=== PATIENT | male | born 1960 | race Caucasian/White ===

== ENCOUNTER 2016-08-13 02:21 | Inpatient (IN) | payer OTHER ==
[~2016-08-13] VITALS: Ht 182.9 cm; Wt 86.2 kg
--- NOTE | 2016-08-13 02:30 | ED DYSPNEA/ASTHMA COMPLAINT ---
History of Present Illness General Chief Complaint: General Adult Stated Complaint: DIFF BREATHING Source: patient, family Exam Limitations: no limitations Vital Signs & Intake/Output Vital Signs & Intake/Output Vital Signs Date Time Temp Pulse Resp B/P Pulse O2 O2 Flow FiO2 Ox Delivery Rate 08/13 0645 97.5 106 20 115/68 99 Nasal 2.0L Cannula 08/13 0522 107 20 107/68 99 Nasal 2.0L Cannula 08/13 0430 97.3 110 20 115/69 98 Nasal 2.0L Cannula 08/13 0350 131 20 110/78 95 Nasal 2.0L Cannula 08/13 0320 108 20 105/67 98 Nasal 2.0L Cannula 08/13 0310 140 24 168/113 08/13 0237 97 Nasal 3.0L Cannula 08/13 0230 96.7 102 28 168/113 97 Nasal 2.0L Cannula Allergies Coded Allergies: No Known Allergies (08/13/16) Reconcile Medications No Known Home Medications Triage Nurses Notes Reviewed? yes Onset: Gradual Duration: day(s): Timing: recent history Severity: moderate Activities at Onset: none Prior Episodes/Possible Cause: occasional episodes Modifying Factors: Improves With: rest. Worsens With: movement. Associated Symptoms: cough, wheezing HPI: 56 yo gentleman h/o cigarette smoking, h/o ID presents with 1 day history of cough, wheezing, dyspnea at rest, with phlegm. He notes that, "They were doing some spray painting downstairs.... That's when I started wheezing." He notes that during the day into the night, he started to feel worse. Upon arrival, he is dyspneic at rest, with difficulty speaking in complete sentences. 02 sat 91% room air. Past History Medical History Any Pertinent Medical History? see below for history Cardiovascular: CAD, ID Surgical History Surgical History: non-contributory Family History Hx Contributory? No Review of Systems Review of Systems Constitutional: Reports: no symptoms. EENTM: Reports: no symptoms. Respiratory: Reports: no symptoms. Cardiovascular: Reports: no symptoms. GI: Reports: no symptoms. Genitourinary: Reports: no symptoms. Musculoskeletal: Reports: no symptoms. Skin: Reports: no symptoms. Neurological/Psychological: Reports: no symptoms. Hematologic/Endocrine: Reports: no symptoms. Immunologic/Allergic: Reports: no symptoms. All Other Systems: Reviewed and Negative Physical Exam Physical Exam General Appearance: well developed/nourished, moderate distress Head: atraumatic, normal appearance Eyes: Bilateral: normal appearance. Ears, Nose, Throat: normal pharynx, normal ENT inspection Neck: normal inspection, supple, full range of motion Respiratory: chest non-tender, accessory muscle use, wheezing, respiratory distress Cardiovascular: regular rate/rhythm Gastrointestinal: normal bowel sounds, soft, non-tender, no organomegaly Extremities: normal inspection, normal capillary refill, normal range of motion, no edema Neurologic/Psych: no motor/sensory deficits, awake, alert, oriented x 3 Skin: intact, normal color, warm/dry Core Measures ACS in differential dx? No Severe Sepsis Present: No Septic Shock Present: No Progress Differential Diagnosis: asthma, AMI, CHF, COPD, pneumonia Plan of Care: Orders Procedure Date/time Status Regular Diet 08/13 B Active TROPONIN LEVEL 08/13 1000 Active EKG 08/13 1000 Active ECHOCARDIOGRAM 08/13 0800 Active TRC EVALUATION (GEN) 08/13 626 Active Add-on Test (ER Only) 08/13 0627 Active Intake & Output 08/13 0626 Active Patient Data 08/13 0546 Active Saline Lock 08/13 0521 Active Pathway - chart 08/13 0521 Active House Staff 08/13 0521 Active Code Status 08/13 0521 Active Admit to inpatient 08/13 0513 Active LIPID PANEL 08/13 0400 Active GLYCOSYLATED HGB 08/13 0400 Active BLOOD CULTURE 08/13 0240 Active BLOOD CULTURE 08/13 0237 Active TROPONIN LEVEL 08/13 0236 Active PARTIAL THROMBOPLASTIN TIME 08/13 0236 Complete PROTHROMBIN TIME 08/13 0236 Complete COMPREHENSIVE METABOLIC PANEL 08/13 0236 Active CBC WITHOUT DIFFERENTIAL 08/13 0236 Complete B-TYPE NATRIURETIC PEP (BNP) 08/13 0236 Active EKG 08/13 0236 Active VTE Mechanical Prophylaxis 08/13 UNK Active Current Medications Sig/Shy Start time Last Medication Dose Stop Time Status Admin Methylprednisolone 40 MG Q8 08/13 1400 UNVr (Solumedrol) Albuterol Sulfate 3 ML Q4P PRN 08/13 0630 AC (Proventil) Laboratory Tests 08/13/16 0400: Anion Gap 9, Estimated GFR > 60, BUN/Creatinine Ratio 8.8, Glucose 124 H, Hemoglobin A1c Pending, Calcium 9.1, Total Bilirubin 0.6, AST 19, ALT 34, Alkaline Phosphatase 76, Troponin I 0.08, Umt-Z-Jyulaklqdqn Pept 1470 H, Total Protein 6.8, Albumin 4.0, Globulin 2.8, Albumin/Globulin Ratio 1.4, Triglycerides 110, Cholesterol 193, LDL Cholesterol, Calc 135 H, HDL Cholesterol 36 L, Cholesterol/HDL Ratio 5 H, PT 11.9, INR 1.13, APTT 34 08/13/16309: CBC w Diff NO MAN DIFF REQ, RBC 5.26, MCV 91.1, MCH 30.7, RDW 14.3, MPV 9.3, Gran % 85.2 H, Lymphocytes % 8.3 L, Monocytes % 5.5, Eosinophils % 0.8, Basophils % 0.2, Absolute Granulocytes 7.5 H, Absolute Lymphocytes 0.7 L, Absolute Monocytes 0.5, Absolute Eosinophils 0.1, Absolute Basophils 0, PUBS MCHC 33.6 Microbiology 08/13 309 BLOOD: Blood Culture - RECD 08/13 249 BLOOD: Blood Culture - RECD Diagnostic Imaging: Viewed by Me: Radiology Read. Discussed w/RAD: Radiology Read. CXR Impression: interstitial edema... full report below. Initial ED EKG: lbbb afib with rapid ventricular response. Comments: PATIENT: DIMAS CORTEZ PRESENT AGE: 56 PATIENT ACCOUNT NO: [id number] : 60 LOCATION: [facility] ORDERING PHYSICIAN: LEE VIERA MD SERVICE DATE: 08/13/16 EXAM TYPE: RAD - XRY-PORTABLE CHEST XRAY EXAMINATION: XR PORTABLE CHEST CLINICAL INFORMATION: Dyspnea. COMPARISON: No relevant prior imaging available. TECHNIQUE: Portable AP view of the chest was obtained. FINDINGS: There is hilar vascular engorgement and increased interstitial markings with a lower lobe predominant distribution. No overt consolidative disease or effusion. No pneumothorax. The cardiac silhouette and upper mediastinal contours are normal. No acute osseous finding. IMPRESSION: Early changes of interstitial edema without evidence of overt airspace disease. DICTATED BY: CORAZON HASTINGS,BOYD Gross DATE/TIME DICTATED:08/13/16312 HOTEL OR MOTEL CLEANING SUPERVISOR:MSIHEL DATE/TIME TRANSCRIBED:08/13/16312 CONFIDENTIAL, DO NOT COPY WITHOUT APPROPRIATE AUTHORIZATION. <Electronically signed in Other Vendor System> SIGNED BY: CORAZON HASTINGS,BOYD Gross 08/13 0318 Departure Departure Disposition: STILL A PATIENT Condition: Stable Clinical Impression Primary Impression: Atrial fibrillation with rapid ventricular response Secondary Impressions: COPD exacerbation Referrals: ROMMEL HASTINGS,DI Duque (PCP/Family) Departure Forms: Customer Survey General Discharge Information Prescriptions: Current Visit Scripts No Known Home Medications Admission Note Spoke With: STU KELSEY MD Documentation of Exam: Documentation of any treatments & extenuating circumstances including Concerns Regarding Discharge (functional status, medication knowledge or non-compliance, living conditions, etc.) that warrant an admission rather than observation: pt with afib with RVR, copd, small component of chf... merits dilt gtt, iv steroids/abx. discussed with dr. mitchell who will consult. pt initially declines heparin gtt... resident discussed with patient. Will now proceed with heparin gtt. Critical Care Note Critical Care Note Critical Care Time: 30-74 min
--- NOTE | 2016-08-13 02:33 | NUR ---
PT TO ED C/O SOB. PT REPORTS FEVER AND RUNNY NOSE SINCE THIS MORNING BUT REPORTS GETTING SOB AFTER NEIGHBORS WERE SPRAY PAINTING DOWNSTAIRS. PT PRESENTS INCREASED WOB AND BILAT WHEEZES
--- NOTE | 2016-08-13 03:09 | NUR ---
EKG DONE BY NURSE MILAGROS RAY; AND SHOWN TO DR. VIERA.
--- NOTE | 2016-08-13 03:18 | RADIOLOGY REPORT ---
EXAMINATION: XR PORTABLE CHEST CLINICAL INFORMATION: Dyspnea. COMPARISON: No relevant prior imaging available. TECHNIQUE: Portable AP view of the chest was obtained. FINDINGS: There is hilar vascular engorgement and increased interstitial markings with a lower lobe predominant distribution. No overt consolidative disease or effusion. No pneumothorax. The cardiac silhouette and upper mediastinal contours are normal. No acute osseous finding. IMPRESSION: Early changes of interstitial edema without evidence of overt airspace disease.
[2016-08-13 03:25] LABS: ABSOLUTE BASOPHIL COUNT 0 /CUMM (0.0-0.2); ABSOLUTE EOSINOPHIL COUNT 0.1 /CUMM (0.0-0.7); ABSOLUTE GRANULOCYTE CT 7.5 /CUMM (1.4-6.5); ABSOLUTE LYMPH COUNT 0.7 /CUMM (1.2-3.4); ABSOLUTE MONOCYTE COUNT 0.5 /CUMM (0.10-0.60); BASOPHIL % 0.2 % (0.0-2.0); EOSINOPHIL % 0.8 % (0-5); GRANULOCYTE % 85.2 % (42.2-75.2); HEMATOCRIT 47.9 % (42-52); MEAN CORPUSCULAR HGB 30.7 PG (27.0-31.0); MEAN CORPUSCULAR HGB CONC 33.6 G/DL (33.0-37.0); MEAN CORPUSCULAR VOLUME 91.1 FL (80.0-94.0); MEAN PLATELET VOLUME 9.3 FL (7.4-10.4); PLATELET COUNT 155 /CUMM (130-400); RBC DISTRIBUTION WIDTH 14.3 % (11.5-14.5); RED BLOOD CELL CT 5.26 /CUMM (4.70-6.10); WHITE BLOOD CELL COUNT 8.8 /CUMM (4.8-10.8)
--- NOTE | 2016-08-13 03:48 | NUR ---
PT REPORTS BREATHING IMPROVING AFTER BREATHING. PT DENIES SOB AND CP. PT CONTINUES IN AFIB, DILTIAZEM DRIP RUNNING PER ORDER
[2016-08-13 04:17] LABS: PT 11.9 SEC (9.4-12.5); PTT 34 SEC (25-37)
--- NOTE | 2016-08-13 05:16 | History & Physical ---
See Addendum JERE HASTINGS,MOLLYCatrachito 08/13/16 0516: General Information and HPI MD Statement: I have seen and personally examined CORTEZ CORTEZ and documented this H&P. The patient is a 56 year old M who presented with a patient stated chief complaint of [shortness of breath]. Source of Information: patient Exam Limitations: no limitations History of Present Illness: This is a 56-year-old male with past medical history significant for AR 2 (age 42 and 52) s/p 4 stents, paroxysmal A. fib not on anticoagulation for the past 15 years, current smoker, who comes in with chief complaint of shortness of breath. Patient states that for the past 2 days he has been feeling under the weather with rhinorrhea and some cough with phlegm. However, yesterday afternoon he had exposure to spray paint in his home and started feeling acutely more wheezy and more short of breath. Around 2 AM this morning he woke up acutely short of breath and decided to come to ED. He denies any chest pain, chest discomfort, headache, nausea, vomiting, orthopnea, but does endorse intermittent palpitations, dyspnea at rest, and "hot flashes." Patient has significant family history of cardiac events. His father had atrial fibrillation and 2/2 to uncontrolled bleed from anticoagulation. He states all his uncles of angina and heart attack in their 40s and 50s. Patient states he takes no medications, including baby aspirin. He is a current smoker of 6+ cigarettes a day for the last 45 years. He is a social drinker, denies any drugs. 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 Patient followed by manager of hospital, Dr. Nova (sp?) in [place]. Notably, patient is resistant to medical intervention. He does not like the idea of any blood thinners given the experience with his father. Currently unclear what kind of stent he has but he states that he only had 6 months of anticoagulation with Plavix. Patient seems to have significant social stressors in his life including a daughter who is addicted to heroin, the state has taken away his grandchildren, he is experiencing job insecurity, and he feels he is about to lose his house as well. Patient denies any actual suicidal or homicidal ideation but he seems to think that his family will potentially benefit from his demise,making statements such as "my family would be better off with out me." Patient is profusely diaphoretic and short of breath in ED but profoundly insistent that he does not have any chest pain. He states his previous cardiac events the preceded by "elbow pain" but denies experiencing anything similar at this time. Allergies/Medications Allergies: Coded Allergies: No Known Allergies (08/13/16) Home Med list No Known Home Medications Compliance With Home Meds: POOR Past History Medical History Cardiovascular: CAD, myocardial infarction Surgical History Surgical History: non-contributory Past Family/Social History Psychosocial History Smoking Status: Current Everyday Smoker ETOH Use: occasional use Illicit Drug Use: denies illicit drug use Functional Ability ADLs Independent: dressing, eating, toileting, bathing. Ambulation: independent IADLs Independent: shopping, housework, finances, food prep, telephone, transportation , medication admin. Review of Systems Review of Systems Constitutional: Reports: diaphoresis, malaise. Denies: chills, fever, weakness. EENTM: Reports: no symptoms. Cardiovascular: Reports: palpitations. Denies: chest pain, edema, orthopena, peripheral edema, syncope. Respiratory: Reports: short of breath. Denies: cough, hemoptysis, orthopnea. GI: Reports: no symptoms. Genitourinary: Reports: no symptoms. Musculoskeletal: Reports: no symptoms. Skin: Reports: no symptoms. Exam & Diagnostic Data Last 24 Hrs of Vital Signs/I&O Vital Signs Date Time Temp Pulse Resp B/P Pulse O2 O2 Flow FiO2 Ox Delivery Rate 08/13 0645 97.5 106 20 115/68 99 Nasal 2.0L Cannula 08/13 0522 107 20 107/68 99 Nasal 2.0L Cannula 08/13 0430 97.3 110 20 115/69 98 Nasal 2.0L Cannula 08/13 0350 131 20 110/78 95 Nasal 2.0L Cannula 08/13 0320 108 20 105/67 98 Nasal 2.0L Cannula 08/13 0310 140 24 168/113 08/13 0237 97 Nasal 3.0L Cannula 08/13 0230 96.7 102 28 168/113 97 Nasal 2.0L Cannula Intake & Output 08/13 0800 08/13 0000 08/12 1600 Intake Total Output Total 800 Balance -800 Output, Urine 800 Patient 88.451 kg Weight Physical Exam General Appearance Alert, Oriented X3, Cooperative, Moderate Distress Skin No Significant Lesion HEENT Atraumatic, PERRLA, Mucous Membr. moist/pink, profusely diaphoretic Neck Supple Cardiovascular irregularly irregular; tachycardic Lungs crackles diffusely in all lung bender stethescope unnecessary for appreciating his wheezes in all lung bender Abdomen Soft, No Tenderness Neurological Normal Speech, Strength at 5/5 X4 Ext, Sensation Intact, Cranial Nerves 3-12 NL, Reflexes 2+ Extremities No Edema Last 24 Hrs of Labs/Anthony: Laboratory Tests 08/13/16 0400: Anion Gap 9, Estimated GFR > 60, BUN/Creatinine Ratio 8.8, Glucose 124 H, Hemoglobin A1c Pending, Calcium 9.1, Total Bilirubin 0.6, AST 19, ALT 34, Alkaline Phosphatase 76, Troponin I 0.08, Png-I-Soubscxvoom Pept 1470 H, Total Protein 6.8, Albumin 4.0, Globulin 2.8, Albumin/Globulin Ratio 1.4, Triglycerides 110, Cholesterol 193, LDL Cholesterol, Calc 135 H, HDL Cholesterol 36 L, Cholesterol/HDL Ratio 5 H, PT 11.9, INR 1.13, APTT 34 08/13/16 0310: CBC w Diff NO MAN DIFF REQ, RBC 5.26, MCV 91.1, MCH 30.7, RDW 14.3, MPV 9.3, Gran % 85.2 H, Lymphocytes % 8.3 L, Monocytes % 5.5, Eosinophils % 0.8, Basophils % 0.2, Absolute Granulocytes 7.5 H, Absolute Lymphocytes 0.7 L, Absolute Monocytes 0.5, Absolute Eosinophils 0.1, Absolute Basophils 0, PUBS MCHC 33.6 Microbiology 08/13 0310 BLOOD: Blood Culture - RECD 08/13 025 BLOOD: Blood Culture - RECD Assessment/Plan Assessment: This is a 56-year-old male with significant cardiac history including AR 2, status post post 4 stents, noncompliant with cardiac regimen, current smoker with significant family history of cardiac events who comes in with chief complaint of shortness of breath. In ED he was found to be in A. fib with RVR, profoundly diaphoretic, hypoxic and SOB causing concern for ischemic cardiac event. ED workup shows: Vital: 96.7, heart rate between 140 and 102, respiratory rate between 28 and 20, blood pressure between 168/113 and 105/67, satting between 91-95 on nasal cannula. INR 1.13, BUN 7, creatinine 0.8. First troponin negative. BNP 1470. EKG shows A. fib with RVR with wide QRS. No previous EKG available. Concern for new bundle branch block. Chest x-ray: Shows early changes of interstitial edema without airspace disease Plan: 1. Unstable angina: Patient denies any chest pain and his first troponin is negative, however his EKG shows A. fib with a widened QRS which is concerning for bundle branch block. Additionally, patient is profusely diaphoretic and short of breath. Given his significant personal history of AR, stent, noncompliant cardiac regimen, smoking, and family history he is at very high risk for stent thrombosis and unstable angina. * Trend troponins EKG (next at 10 AM) * Starting heparin drip. Patient adamantly denied initially, however we convinced him of benefit. * Aspirin * Dr. Pak on board * Pt follows up with manager of hospital Dr. Mata (sp?) in [place]; obtain records * Note that pt BP has been trending downwards to last measured at 105/67; holding beta nena and nitro 2. ?Heart failure: He currently carries no diagnosis of heart failure. However on pulmonary exam he has diffuse crackles and has chest x-ray showing airspace disease. BNP 1470. Cannot appreciate JVD. No lower extremity edema. * Echocardiogram 3. A. fib with RVR: Patient has long-standing history of proximal A. fib for the past 15 years. He is currently not on any anticoagulation or rate control medications. He states he has never been hospitalized for rapid heart rate in the past. * Currently on iv diltiazem 7.5 * Cardiology consult * Monitor on telemetry 4. Shortness of breath and dyspnea at rest: Patient did endorse some malaise and rhinorrhea for the past 2 days. However, he describes an acute onset of shortness of breath after exposure to spray paint fumes. Patient has significant smoking history but no diagnosis of COPD or reactive airway disease. * TRC * Solu-Medrol 40 IV every 8 5. Depression/anxiety: Patient denies active SI or HI but makes alarming statements that he thinks his family be better off without him. He thinks they would financially benefit from his demise. He seems resistant to treatment. * Consider psych consult * Consider social work consult Full code Nothing by mouth Chemical DVT prophylaxis As Ranked By This Provider Problem List: 1. Atrial fibrillation with rapid ventricular response 2. COPD exacerbation Core Measures/Miscellaneous Acute Coronary Syndrome ACS Diagnosis: No Cerebrovascular Accident CVA/TIA Diagnosis: No Congestive Heart Failure CHF Diagnosis: No Venous Thromboembolism VTE Risk Factors: Acute medical illness, Age > 40 No [facility] VTE prophylaxis d/t: No contraindications No VTE Pharm Prophylaxis d/t: No contraindications VTE Diagnosis: No VTE Type: NONE VTE Confirmed by (Test): NONE Severe Sepsis Severe Sepsis Present: No Septic Shock Septic Shock Present: No Miscellaneous Documentation Attending Case Discussed With: ELVIS DREW MD Primary Care Physician: DI CARNEY MD Patient sees these Specialists unknown Level of Patient Care: General Medicine Consults Needed: Consulting Specialty: Cardiology SAUL EUCEDA MD 08/13/16 0643: Resident Review Statement Resident Statement: examined this patient, discussed with intelligence intern, agreed with intelligence intern, discussed with family, reviewed EMR data (avail), discussed with nursing , discussed with case mgmt, reviewed images, amended to note Other Findings: Cortez is a 56 year old man with a medical history of known coronary artery disease status post myocardial infarction 2) age 42, age 52), reports for cardiac stents. Admits to medical noncompliance. Reports malaise, subjective chills fever sweating, rhinitis and feeling "achy" since Saturday. On Saturday his son was painting a house, fumes joao to his room and he felt dyspneic shortness of breath. Attributes this to fume inhalation. He has a manager of hospital a "Dr. Patrick" on "[address] Per hx it appears he has had intermitten atrial fibrillation for "15 years". He smokes 6 cigs/d, drinks alcohol socially. 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 At present, He appears diaphoretic, pale, nervous/anxious and fearful but adamantly denies CP. He endorses a sense of impending doom. He has many psychosocial problems and feels "my kids would be better off without me". Ignoring his manager of hospital's advice he prematurely stopped his antiplatelet regimen post-PCI/stent and does not take any medications whatsoever. He has a lien on his house, his daughter is a heroin addict. After much counseling, he agreed to heparin. In the ER, he is in Afib with RVR, CXR demonstrates interstitial edema, BNP elevated he rec'd furosemide, cardizem gtt, solumedrol, ceftriaxone/azithromycin and ipratropiam & albuterol nebs. Dr. Parks advised the patient on heparin at which time he refused, he also placed a call to Dr. Bauman's answering service, but did not receive an answer. I placed a call to Dr. Bauman's cell phone, and left a voicemail message and paged Dr. Pak. Case d/w Dr. Pak he advised heparin gtt, full dose aspirin, defer NTG paste, and beta blockers because of hypotension, repeat trops/ekg. Dr. Bauman called back and situation explained to him. This patient is clearly in AFib with RVR, his non compliance is concerning in that the AFib may be due to cardiac ischemia. He has a very significant family hx of multiple uncles dying <55years old of heart attacks. He has significant risk factors. He appears acutely ill. Crackles and wheeze are audible with the unassisted ear. Wheezing may be due to inhalation injury and bronchspasm or cardiac wheeze/asthma from acute pulmonary edema. - {Problems} - Afib with RVR ?ACS Pulmonary edema Known CAD w/ stent - {Plan} - Heparin gtt Cardizem gtt Albuterol nebs Supplemental O2 Aspirin 325mg x 1 Solumedrol 40mg iv q8 Serial enzyme/ekg Echo Strict i/o Consider further lasix; he is diuresing right now after lasix 20mg iv x1 Cardiology evaluation Consider psych/SW consult FULL code
--- NOTE | 2016-08-13 05:19 | NUR ---
PT APPEARS TO BE RESTING COMFORTABLY. PT DENIES CP AND SOB. PT AFIB ON THE MONITOR. DILTIAZEM INFUSING
--- NOTE | 2016-08-13 06:48 | NUR ---
PT A/O X4. RESP UNLABORED. AFIB ON THE MONITOR. PT DENIES PAIN AND SOB. WILL CONTINUE TO MONITOR.
--- NOTE | 2016-08-13 07:29 | NUR ---
HOUSE STAFF IN ROOM PT GIVEN BREAKFAST TRAY
--- NOTE | 2016-08-13 07:41 | NUR ---
PT GIVEN URINAL
--- NOTE | 2016-08-13 07:50 | NUR ---
PT HAD BED ASSIGNMENT 188-1. RN AWARE.
--- NOTE | 2016-08-13 07:54 | PN- Housestaff ---
Subjective Follow-up For: - [facility] Complaints: no complaints Tele-Events Since Last Visit: No events were noted. Subjective: The patient did not have any complaints this morning. Did not have any chest pain, and difficulty breathing improved compared to yesterday. He did not want to discuss about cardiac symptoms namely chest pain, palpitations. Remained afebrile overnight. Vitals were stable. During the day, the patient converted to normal sinus rhythm. Review of Systems Constitutional: Reports: see HPI. Objective Last 24 Hrs of Vital Signs/I&O Vital Signs Date Time Temp Pulse Resp B/P Pulse O2 O2 Flow FiO2 Ox Delivery Rate 08/13 0645 97.5 106 20 115/68 99 Nasal 2.0L Cannula 08/13 0522 107 20 107/68 99 Nasal 2.0L Cannula 08/13 0430 97.3 110 20 115/69 98 Nasal 2.0L Cannula 08/13 0350 131 20 110/78 95 Nasal 2.0L Cannula 08/13 0320 108 20 105/67 98 Nasal 2.0L Cannula 08/13 0310 140 24 168/113 08/13 0237 97 Nasal 3.0L Cannula 08/13 0230 96.7 102 28 168/113 97 Nasal 2.0L Cannula Intake & Output 08/13 0800 08/13 0000 08/12 1600 Intake Total Output Total 800 Balance -800 Output, Urine 800 Patient 195 lb Weight Physical Exam General Appearance: No Acute Distress Other Physical Findings: General Exam: AAOx3, mild distress Skin: No rashes, no breakdown HEENT: PERRLA, EOMI Neck: Supple, No JVD No cervical lymphadenopathy CVS: Reg Rate, Normal S1,S2, No MGR Resp: Decreased air entry, bilateral rhonchi/rales. Abdomen: Soft, No tenderness, Normal Bowel Sounds Neuro: Normal Speech, Strength 5/5 b/l x 4 extremities, Sensation intact, CN III -XII NL, Reflexes 2+ Extremities: No cyanosis, no pedal edema Current Medications: Current Medications Sig/Shy Start time Last Medication Dose Route Stop Time Status Admin Albuterol Sulfate 3 ML Q4P PRN 08/13 629 AC INH Albuterol Sulfate 3 ML ONCE ONE 08/13 023 DC 08/13 INH 08/13 230 0237 Aspirin 0 .STK-MED ONE 08/13 0546 DC PO Aspirin 0 .STK-MED ONE 08/13 0624 DC PO Aspirin 325 MG ONCE ONE 08/13 0615 DC 08/13 PO 08/13 0616 0644 Azithromycin 500 MG ONCE ONE 08/13 0245 DC 08/13 Sodium Chloride 250 ML IV 08/13 0344 0330 Ceftriaxone Sodium 0 .STK-MED ONE 08/13 0303 DC .ROUTE Ceftriaxone Sodium 1,000 MG ONCE ONE 08/13 0245 DC 08/13 IV 08/13 0246 0330 Diltiazem HCl 125 MG Q16H 08/13 0415 AC 08/13 Dextrose/Water 100 ML IV 0414 Diltiazem HCl 0 .STK-MED ONE 08/13 0302 DC .ROUTE Diltiazem HCl 10 MG ONCE ONE 08/13 0300 DC 08/13 IV 08/13 0301 0310 Diltiazem HCl 125 MG Q8H 08/13 0300 DC 08/13 Sodium Chloride 100 ML IV 0319 Furosemide 20 MG ONCE ONE 08/13 0445 DC 08/13 IV 08/13 0446 0437 Furosemide 0 .STK-MED ONE 08/13 0435 DC IV Heparin Sodium 25,000 UNIT Q24H 08/13 0630 AC 08/13 (Porcine) IV 0640 Sodium Chloride 500 ML Ipratropium [place] 2.5 ML ONCE ONE 08/13 0230 DC 08/13 INH 08/13 0231 0237 Lorazepam 0.5 MG STAT STA 08/13 0410 CAN IV 08/13 0411 Methylprednisolone 40 MG Q8 08/13 1400 UNVr IV Methylprednisolone 0 .STK-MED ONE 08/13 030 DC .ROUTE Methylprednisolone 125 MG ONCE ONE 08/13 0245 DC 08/13 IV 08/13 0246 0305 Last 24 Hrs of Lab/Anthony Results Last 24 Hrs of Labs/Mics: Laboratory Tests 08/13/16 0400: Anion Gap 9, Estimated GFR > 60, BUN/Creatinine Ratio 8.8, Glucose 124 H, Hemoglobin A1c Pending, Calcium 9.1, Total Bilirubin 0.6, AST 19, ALT 34, Alkaline Phosphatase 76, Troponin I 0.08, Elv-J-Qbzzdmdowkq Pept 1470 H, Total Protein 6.8, Albumin 4.0, Globulin 2.8, Albumin/Globulin Ratio 1.4, Triglycerides 110, Cholesterol 193, LDL Cholesterol, Calc 135 H, HDL Cholesterol 36 L, Cholesterol/HDL Ratio 5 H, PT 11.9, INR 1.13, APTT 34 08/13/16 031: CBC w Diff NO MAN DIFF REQ, RBC 5.26, MCV 91.1, MCH 30.7, RDW 14.3, MPV 9.3, Gran % 85.2 H, Lymphocytes % 8.3 L, Monocytes % 5.5, Eosinophils % 0.8, Basophils % 0.2, Absolute Granulocytes 7.5 H, Absolute Lymphocytes 0.7 L, Absolute Monocytes 0.5, Absolute Eosinophils 0.1, Absolute Basophils 0, PUBS MCHC 33.6 Microbiology 08/13 309 BLOOD: Blood Culture - RECD 08/13 249 BLOOD: Blood Culture - RECD Assessment/Plan Assessment: Mr Marino is a 56-year-old man with a past history of CAD status post 4 stents, paroxysmal atrial fibrillation (not on any anticoagulation DX'ed 15 years ago- unclear reasons), current smoker who is being evaluated for sudden onset of shortness of breath 1 day. Reports noncompliance to medications. At the time of admission, temperature 96.7, blood pressure 168/113, heart rate 102, pulse rate 20, oxygen saturations 95% on nasal cannula. EKG revealed atrial fibrillation with rapid ventricular response with wide QRS, left bundle branch block noted. Lab findings indicated-third BC 8.8, hemoglobin 16.1, platelets 155, sodium 138, potassium 3.7, BUN 7/serum creatinine 0.8, magnesium 2.0, troponins-0.08-->0.40. ProBNP 1470. Radiological findings-chest x-ray revealed interstitial edema without evidence of any airspace disease. Blood cultures pending at this time. Differential diagnosis: #1 unstable angina/NSTEMI #2 paroxysmal atrial fibrillation(?) Below is the problem list and plan: #1 shortness of breath-likely because of paroxysmal atrial fibrillation leading to decreased cardiac output. NSTEMI in the differential. Aspirin 325 mg administered in ED. Continue on aspirin and metoprolol. Patient was already started on Cardizem drip, which is being titrated down. Jean Vasc score of 2 ( last echocardiogram unavailable at this time, but considering the symptoms of fluid overload, CHF is likely), but the patient at moderate risk with 2.8% of yearly risk of stroke without treatment. Has bled score of 2 would put the patient on intermediate risk. Current smoker, and no formal diagnosis of COPD was ever made on this patient. Lasix and scheduled dose could be given. Continue IV Solu-Medrol 40 every 8 which would be tapered in the a.m. TRC. No antibiotics are indicated at this time. Can start a new anticoagulant after discussing with the patient in the a.m. Dr. Bauman advising. Problem List: 1. COPD exacerbation 2. Atrial fibrillation with rapid ventricular response Pain Ratin Pain Location: Back pain Pain Goal: Pain 4 or less Pain Plan: Tylenol when necessary Tomorrow's Labs & Rationales: Basic electrolyte panel-to monitor for electrolytes. DVT/Prophylaxis: pharmacological Discharge Plan Discharge Disposition: home Stable for Discharge? Yes Anticipated Discharge (Day): tomorrow If Discharged Today/In 24 Hrs: enter antc discharge ord
[2016-08-13 08:44] VITALS: BP 100/80
--- NOTE | 2016-08-13 09:27 | Cons- Cardiology ---
General Information and HPI Consulting Request Date of Consult: 08/13/16 Requested By: ELVIS DREW MD Reason for Consult: Atrial fibrillation History of Present Illness: The patient is a 56-year-old male with history of coronary artery disease, myocardial infarction 2, stents 4, and paroxysmal atrial fibrillation. He is followed in the office by Dr. Patrick in [place]. He has a long-standing refusal to take any cardiac medications, and he states Dr. Patrick understands this. He has not followed up with Dr. Patrick in a few years. He presents with complaint of shortness of breath. He notes that for the past 2 days he has been feeling poorly with rhinorrhea and productive cough. Yesterday afternoon he was exposed to spray paint fumes in his home and he subsequently developed wheezing and increased shortness of breath. He awoke at 2:00 AM with worsening shortness of breath and presented to the hospital. He notes that his father secondary to bleeding from anticoagulation. He has refused all medications including aspirin. He states that he understands that he is at risk of complications or even from not taking medications and that is his choice. He is noted to be in atrial fibrillation with rapid ventricular rate and left bundle-branch block. IV heparin and diltiazem drip were started. Allergies/Medications Allergies: Coded Allergies: No Known Allergies (08/13/16) Home Med List: No Known Home Medications Current Medications: Current Medications Sig/Shy Start time Last Medication Dose Route Stop Time Status Admin Albuterol Sulfate 3 ML Q4P PRN 08/13 0630 AC INH Albuterol Sulfate 3 ML ONCE ONE 08/13 0230 DC 08/13 INH 08/13 0231 0237 Aspirin 0 .STK-MED ONE 08/13 0646 DC PO Aspirin 0 .STK-MED ONE 08/13 0624 DC PO Aspirin 325 MG ONCE ONE 08/13 0615 DC 08/13 PO 08/13 0616 0644 Azithromycin 500 MG ONCE ONE 08/13 0245 DC 08/13 Sodium Chloride 250 ML IV 08/13 0344 0330 Ceftriaxone Sodium 0 .STK-MED ONE 08/13 0303 DC .ROUTE Ceftriaxone Sodium 1,000 MG ONCE ONE 08/13 0245 DC 08/13 IV 08/13 0246 0330 Diltiazem HCl 125 MG Q16H 08/13 0415 AC 08/13 Dextrose/Water 100 ML IV 0414 Diltiazem HCl 0 .STK-MED ONE 08/13 0302 DC .ROUTE Diltiazem HCl 10 MG ONCE ONE 08/13 0300 DC 08/13 IV 08/13 0301 0310 Diltiazem HCl 125 MG Q8H 08/13 0300 DC 08/13 Sodium Chloride 100 ML IV 0319 Furosemide 20 MG ONCE ONE 08/13 0445 DC 08/13 IV 08/13 0446 0437 Furosemide 0 .STK-MED ONE 08/13 0435 DC IV Heparin Sodium 25,000 UNIT Q24H 08/13 0630 AC 08/13 (Porcine) IV 0640 Sodium Chloride 500 ML Ipratropium [place] 2.5 ML ONCE ONE 08/13 0230 DC 08/13 INH 08/13 0231 0237 Lorazepam 0.5 MG STAT STA 08/13 0410 CAN IV 08/13 0411 Methylprednisolone 40 MG Q8 08/13 1400 AC IV Methylprednisolone 0 .STK-MED ONE 08/13 0302 DC .ROUTE Methylprednisolone 125 MG ONCE ONE 08/13 0245 DC 08/13 IV 08/13 0246 0305 Review of Systems Review of Systems: No chest pain. No palpitations. No rash. No fever. No tremor. All other systems were reviewed, and were noted to be negative. 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 Home Smoking Status: Current Everyday Smoker ETOH Use: occasional use Illicit Drug Use: denies illicit drug use Functional Ability ADLs Independent: dressing, eating, toileting, bathing. Ambulation: independent IADLs Independent: shopping, housework, finances, food prep, telephone, transportation , medication admin. Exam & Diagnostic Data Vital Signs and I&O Vital Signs Date Time Temp Pulse Resp B/P Pulse O2 O2 Flow FiO2 Ox Delivery Rate 08/13 0900 95 Nasal 2.0L Cannula 08/13 0844 97.7 98 20 100/80 95 Nasal 3.0L Cannula 08/13 0752 96.0 98 18 131/79 97 Nasal 3.0L Cannula 08/13 0645 97.5 106 20 115/68 99 Nasal 2.0L Cannula 08/13 0522 107 20 107/68 99 Nasal 2.0L Cannula 08/13 0430 97.3 110 20 115/69 98 Nasal 2.0L Cannula 08/13 0350 131 20 110/78 95 Nasal 2.0L Cannula 08/13 0320 108 20 105/67 98 Nasal 2.0L Cannula 08/13 0310 140 24 168/113 08/13 0237 97 Nasal 3.0L Cannula 08/13 0230 96.7 102 28 168/113 97 Nasal 2.0L Cannula Intake & Output 08/13 1600 08/13 0800 08/13 0000 08/12 1600 08/12 0800 08/12 0000 Intake Total Output Total 100 800 Balance -100 -800 Output, Urine 100 800 Patient 195 lb 195 lb Weight Physical Exam: Gen: The patient is in no acute distress HEENT: Normal nose, ears, and oropharynx. Pupils equal bilaterally. Conjunctiva normal. Neck: Supple with no JVD, no masses, and no thyromegaly Lungs: Bilateral rales with normal respiratory effort Heart: Irregularly irregular, S1, S2, no murmurs. No peripheral edema, 2+ pulses in the lower extremities bilaterally Abdomen: Soft, nontender, no masses. No hepatomegaly. No splenomegaly Extremities: No clubbing or cyanosis. Normal muscle strength in the upper and lower extremities Skin: Normal skin turgor with no skin ulcers or lesions noted. Neuro: Cranial nerves intact. Sensation intact Psych: Alert and oriented 3 with appropriate affect Labs/Anthony Results: Laboratory Tests 08/13 08/13 0400 0310 Chemistry Sodium (137 - 145 mmol/L) 138 Potassium (3.5 - 5.1 mmol/L) 3.7 Chloride (98 - 107 mmol/L) 105 Carbon Dioxide (22 - 30 mmol/L) 24 Anion Gap (5 - 16) 9 BUN (9 - 20 mg/dL) 7 L Creatinine (0.7 - 1.2 mg/dL) 0.8 Estimated GFR (>60 ml/min) > 60 BUN/Creatinine Ratio (7 - 25 %) 8.8 Glucose (65 - 99 mg/dL) 124 H Hemoglobin A1c (4.2 - 5.8 %) Pending Calcium (8.4 - 10.2 mg/dL) 9.1 Total Bilirubin (0.2 - 1.3 mg/dL) 0.6 AST (17 - 59 U/L) 19 ALT (21 - 72 U/L) 34 Alkaline Phosphatase (< 127 U/L) 76 Troponin I (<0.11 ng/ml) 0.08 Vqu-Y-Vofhlireoba Pept (<125 pg/mL) 1470 H Total Protein (6.3 - 8.2 g/dL) 6.8 Albumin (3.5 - 5.0 g/dL) 4.0 Globulin (1.9 - 4.2 gm/dL) 2.8 Albumin/Globulin Ratio (1.1 - 2.2 %) 1.4 Triglycerides (<150 mg/dL) 110 Cholesterol (< 200 MG/DL) 193 LDL Cholesterol, Calc (65 - 129 mg/dL) 135 H HDL Cholesterol (40 - 60 mg/dL) 36 L Cholesterol/HDL Ratio (0.00 - 4.88 %) 5 H Coagulation PT (9.4 - 12.5 SEC) 11.9 INR (0.90 - 1.17) 1.13 APTT (25 - 37 SEC) 34 Hematology CBC w Diff NO MAN DIFF REQ WBC (4.8 - 10.8 /CUMM) 8.8 RBC (4.70 - 6.10 /CUMM) 5.26 Hgb (14.0 - 18.0 G/DL) 16.1 Hct (42 - 52 %) 47.9 MCV (80.0 - 94.0 FL) 91.1 MCH (27.0 - 31.0 PG) 30.7 RDW (11.5 - 14.5 %) 14.3 Plt Count (130 - 400 /CUMM) 155 MPV (7.4 - 10.4 FL) 9.3 Gran % (42.2 - 75.2 %) 85.2 H Lymphocytes % (20.5 - 51.1 %) 8.3 L Monocytes % (1.7 - 9.3 %) 5.5 Eosinophils % (0 - 5 %) 0.8 Basophils % (0.0 - 2.0 %) 0.2 Absolute Granulocytes (1.4 - 6.5 /CUMM) 7.5 H Absolute Lymphocytes (1.2 - 3.4 /CUMM) 0.7 L Absolute Monocytes (0.10 - 0.60 /CUMM) 0.5 Absolute Eosinophils (0.0 - 0.7 /CUMM) 0.1 Absolute Basophils (0.0 - 0.2 /CUMM) 0 PUBS MCHC (33.0 - 37.0 G/DL) 33.6 Diagnostic Data EKG Results EKG tracing is independently reviewed, reveals atrial fibrillation with ventricular response of 134, left bundle-branch block CXR Results Early changes of interstitial edema without evidence of overt airspace disease. Assessment/Plan Assessment/Plan The patient is a 56 yo male with history of coronary artery disease status post myocardial infarction and stents in addition to paroxysmal atrial fibrillation who has been noncompliant with all cardiac medications. He presents with shortness of breath. Physical findings are consistent with acute congestive heart failure. His ejection fraction is unknown. He is noted to be in atrial fibrillation with rapid ventricular rate. Plan: * Start metoprolol 12.5 mg PO twice a day * Wean off diltiazem drip if possible. * Continue IV heparin for now. We will plan on changing to Eliquis prior to discharge if he agrees * Echocardiogram * Lasix 20 mg IV every 12 hours * Follow input and output with daily weights * Check basic metabolic profile daily * We will continue to encourage the patient to agree to take medications on a long-term basis and follow up more regularly. Consult Acknowledgment - Thank you for your consult request.
--- NOTE | 2016-08-13 10:00 | NUR ---
PATIENT ADMITTED TO UNIT FROM ER. ADMITTING DX NEW ONSET AFIB. ARRIVED TO UNIT ALERT AND ORIENTATED X3. VSS. DENIES CP. SOFTWARE IMPLEMENTATION SPECIALIST APPLIED. AFIB WITH RATE 70'S. IV CARDIZEM AT 7.5MG AND IV HEPARIN AT 20ML/HR. PATIENT REPORTED WANTED TO LEAVE STATING THAT HE CAME IN WITH BREATHING PROBLEM AND THERE IS NOTHING WRONG WITH HIS HEART. DR SNOWDEN CENTRAL SUPPLY MANAGER IN TO SEE PATIENT. PATIENT ON 3L NC. NO SOB. EXP WHEEZES IN ALL LOBES. REFUSES TO ORDER LUNCH AND DINNER BECAUSE HE DOES NOT NEED TO EAT HE IS GOING HOME TODAY. HE IS ORIENTATED TO ROOM AND CALL LIGHT. INDEPENDENT WITH ACTIVITIES. WILL FOLLOW PLAN OF CARE
[2016-08-13 12:56] LABS: PTT 56 SEC (25-37)
--- NOTE | 2016-08-13 13:27 | NUR ---
PATIENT HAD A 6 BEAT RUN OF V-TACH. PATIENT ASLEEP AT TIME. AWAKEN FOR ASSESSMENT. DENIES CP. VSS. DR WALDEN AWARE. PO LOPRESSOR ORDERED AND GIVEN. WILL CONTINUE TO MONITOR.
[2016-08-13 16:51] VITALS: BP 112/64
--- NOTE | 2016-08-13 16:52 | NUR ---
PT HAD 9 BEAT RUN OF VTACH. ASYMPTOMATIC. DR. MARIO ALBERTO WILLS AWARE
[2016-08-13 20:42] LABS: PTT 83 SEC (25-37)
--- NOTE | 2016-08-13 21:26 | NUR ---
P HAD 6 BEAT RUN OF VTACH. NOTIFIED EDUCATION AND TRAINING MANAGER MANUELA. MAGNESIUM 2.0, POTASIUM 3.7, PT ON BETA SANTA. NO NEW ORDERS. WILL CONTINUE TO MONITOR. VITALS WNL, NO COMPLAINTS FROM PATIENT OR S/S CARDIAC DISTRESS.
[2016-08-13 23:14] VITALS: BP 112/82
--- NOTE | 2016-08-14 07:26 | PN- Housestaff ---
WIN DIAS 08/14/16 0725: Subjective Follow-up For: N STEMI Atrial fibrillation Complaints: no complaints Tele-Events Since Last Visit: Normal sinus rhythm, heart rate 60-70s. Subjective: Patient comfortable this morning. Did not have any complaints. No shortness of breath, chest pain or palpitations. Blood pressure remains stable, oxygen saturation 94% on 2 L oxygen. Review of Systems Constitutional: Reports: see HPI. Objective Last 24 Hrs of Vital Signs/I&O Vital Signs Date Time Temp Pulse Resp B/P Pulse O2 O2 Flow FiO2 Ox Delivery Rate 08/14 0000 Nasal 3.0L Cannula 08/13 2314 99.1 78 20 112/82 92 Room Air 08/13 2110 82 130/60 08/13 2000 94 Nasal 3.0L Cannula 08/13 1651 98.2 76 18 112/64 94 Room Air 08/13 1353 Room Air 08/13 1305 70 120/80 08/13 1101 94 Room Air 08/13 0900 95 Nasal 2.0L Cannula 08/13 0844 97.7 98 20 100/80 95 Nasal 3.0L Cannula 08/13 0752 96.0 98 18 131/79 97 Nasal 3.0L Cannula Intake & Output 08/14 0800 08/14 0000 08/13 1600 Intake Total 344 850 197.5 Output Total 100 Balance 344 850 97.5 Intake, IV 224 250 197.5 Intake, Oral 120 600 0 Output, Urine 100 Patient 195 lb Weight Physical Exam General Appearance: No Acute Distress Other Physical Findings: General Exam: AAOx3, No acute distress, Skin: No rashes, no breakdown HEENT: PERRLA, EOMI Neck: Supple, No JVD No cervical lymphadenopathy CVS: Reg Rate, Normal S1,S2, No MGR Resp: Decreased air entry, bilateral rhonchi/rales. Abdomen: Soft, No tenderness, Normal Bowel Sounds Neuro: Normal Speech, Strength 5/5 b/l x 4 extremities, Sensation intact, CN III -XII NL, Reflexes 2+ Extremities: No cyanosis, pedal edema Current Medications: Current Medications Sig/Shy Start time Last Medication Dose Route Stop Time Status Admin Albuterol Sulfate 3 ML Q4P PRN 08/13 0630 AC 08/13 INH 2000 Diltiazem HCl 125 MG Q24H 08/13 2300 AC Dextrose/Water 100 ML IV Diltiazem HCl 125 MG Q16H 08/13 0415 DC 08/13 Dextrose/Water 100 ML IV 08/13 2259 1806 Furosemide 20 MG 7:30 AM, & 4:30 PM 08/13 1630 AC 08/14 IV 0620 Heparin Sodium 2,700 UNIT ONCE ONE 08/13 1530 DC (Porcine) IV 08/13 1531 Heparin Sodium 5,000 UNIT .STK-MED ONE 08/13 1401 DC (Porcine) IV 08/13 1402 Heparin Sodium 25,000 UNIT Q24H 08/13 0630 AC 08/14 (Porcine) IV 0606 Sodium Chloride 500 ML Methylprednisolone 40 MG Q12 08/14 2200 AC IV Methylprednisolone 40 MG Q8 08/13 1400 DC 08/14 IV 08/14 0700 0620 Metoprolol Tartrate 12.5 MG BID 08/13 1132 AC 08/13 PO 2110 Last 24 Hrs of Lab/Anthony Results Last 24 Hrs of Labs/Mics: Laboratory Tests 08/13/16 1920: Troponin I 0.26 *H, APTT 83 H 08/13/16 1131: Magnesium 2.0, Troponin I 0.40 *H, APTT 56 H Assessment/Plan Assessment: Mr Marino is a 56-year-old man with a past history of CAD status post 4 stents, paroxysmal atrial fibrillation (not on any anticoagulation DX'ed 15 years ago- unclear reasons), current smoker who is being evaluated for sudden onset of shortness of breath 1 day. Reports noncompliance to medications. Differential diagnosis: #1 unstable angina/NSTEMI #2 paroxysmal atrial fibrillation(?) Below is the problem list and plan: #1 shortness of breath-likely because of paroxysmal atrial fibrillation leading to decreased cardiac output. NSTEMI in the differential. Continue on aspirin and metoprolol. Discontinue Cardizem drip. Current smoker, and no formal diagnosis of COPD was ever made on this patient. Lasix and scheduled dose could be given. Continue IV Solu-Medrol 40 every 8 which would be decreased to twice a day. TRC. No antibiotics are indicated at this time. Start Eliquis. Dr. Bauman advising. Problem List: 1. COPD exacerbation 2. Atrial fibrillation with rapid ventricular response Pain Ratin Pain Location: Knees-bilateral Pain Goal: Pain 4 or less Pain Plan: tylenol Tomorrow's Labs & Rationales: NO labs necessary. Consulting Request: Consulting Specialty: Cardiology RAJENDRA HASTINGSELVIS 08/14/16 1623: Attending MD Review Statement Attending Statement Attending MD Statement: examined this patient, discuss w/resident/PA/POTATO SORTER, agreed w/resident/PA/POTATO SORTER, reviewed EMR data (avail) Attending Assessment/Plan: 56M PMH ME 2 (age 42 and 52) s/p 4 stents, paroxysmal A. fib not on anticoagulation admitted for shortness of breath, fatigue, and weakness in the setting rapid atrial fibrillation, acute on chronic CHF (unclear if systolic or diastolic), and positive troponin in the setting of demand ischemia. Patient is improved since starting IV Lasix and Metoprolol for rate control. Patient was noted to be wheezing and was started on Solumedrol, no formal diagnosis of COPD but long smoking history. Plan - Continue on telemetry - COntinue IV Lasix - Continue Solumedrol, switch to Prednisone tomorrow - Nebulizer treatments - Obtain echocardiogram - Follow cardiology recommendations - I/O, daily weights - Continue home medications - DVT PPx
[2016-08-14 09:07] VITALS: BP 102/70
--- NOTE | 2016-08-14 09:47 | Discharge Summary ---
Visit Information Visit Dates Admission Date: 08/13/16 Discharge Date: 08/15/16 Hospital Course Course Attending Physician: ELVIS DREW MD Primary Care Physician: ITZEL AMANDA MD Consulting Request: Consulting Specialty: Cardiology Hospital Course: Mr Marino is a 56-year-old man with a past history of CAD status post 4 stents, paroxysmal atrial fibrillation (not on any anticoagulation DX'ed 15 years ago- unclear reasons), current smoker who is being evaluated for sudden onset of shortness of breath 1 day. Reports noncompliance to medications. At the time of admission, temperature 96.7, blood pressure 168/113, heart rate 102, pulse rate 20, oxygen saturations 95% on nasal cannula. EKG revealed atrial fibrillation with rapid ventricular response with wide QRS, left bundle branch block noted. Lab findings indicated-third BC 8.8, hemoglobin 16.1, platelets 155, sodium 138, potassium 3.7, BUN 7/serum creatinine 0.8, magnesium 2.0, troponins-0.08-->0.40. ProBNP 1470. Radiological findings-chest x-ray revealed interstitial edema without evidence of any airspace disease. Blood cultures negative. Echocardiogram (15 August 2016) revealed left ventricular ejection fraction is estimated at 35-40%. Global hypokinesis. Inhj-kt-ijnnhctb aortic stenosis. Moderately decreased left ventricular systolic function. Differential diagnosis: #1 unstable angina #2 paroxysmal atrial fibrillation Below is the problem list and plan: #1 shortness of breath-likely because of paroxysmal atrial fibrillation leading to decreased cardiac output. NSTEMI was in the differential. Started the pt on aspirin, and metoprolol. [id number] score of 2 (last echocardiogram unavailable at this time, but considering the symptoms of fluid overload, CHF is likely), but the patient at moderate risk with 2.8% of yearly risk of stroke without treatment. HAS BLED score of 2 would put the patient on intermediate risk. Pt was started on intravenous heparin drip, which was changed to NOAC- Eliquis upon discharge. He was also treated w/ intravenous furosemide. Pt was not started on lisinpril during the stay in the hospital, and would defer the decsion to the PCP/physicians and surgeons to see the need for it. Pt has been an active smoker, and no formal diagnosis of COPD was ever made on this patient. He was treated w/ IV Solu-Medrol which was changed to po prednisone at the time of discharge. No antibiotics were indicated at this time. During the stay in the hospital, pt had a brief nonsustained wide complex tachycardia; possibly ventricular in origin versus episodes of atrial fibrillation with aberrancy. As the pt was very anxious to be discharged, and arrangements were made to see Dr. Patrick for arranging a possible pharmacologic nuclear stress test, the day after the dischage. Discussed w/ Dr. Cha who was advising. Allergies: Coded Allergies: No Known Allergies (08/13/16) Pertinent Lab Results: XRY-PORTABLE CHEST XRAY 08/13/16 Early changes of interstitial edema without evidence of overt airspace disease. ECHOCARDIOGRAM 08/14/16 Normal size left ventricle. Mild concentric left ventricular hypertrophy. Moderately decreased left ventricular systolic function. Left ventricular ejection fraction is estimated at 35-40%. Global hypokinesis. Vauj-af-rygzhceb aortic stenosis. Mild aortic regurgitation. Trace tricuspid regurgitation. Trace pulmonic regurgitation Disposition Summary Disposition Principal Diagnosis: Paroxysmal Afibrillaiton Additional Diagnosis: CHF Discharge Disposition: home or self care Discharge Instructions General Discharge Information Code Status: Full Code Patient's Diet: heart healthy diet Patient's Activity: as tolerated. Follow-Up Instructions/Appts: 1. Please see your PCP within one week of discharge. 2. Please see your physicians and surgeons within one week of discharge. Medications at Discharge Discharge Medications: Start taking the following new medications: Furosemide (Furosemide) 40 MG TABLET 1 Tablet ORAL DAILY Qty = 30 Refills = 1 Instructions: Please discuss with your physicians and surgeons with in one week of discharge about continuation of this medication Comments: Last Taken: 08/15/16 Time: 6:45 AM Prednisone (Prednisone) 10 MG TABLET 1 Tablet ORAL DAILY Qty = 30 No Refills Instructions: Please take 08/16-08/18 40 MG 08/19 -08/21 30 MG 08/22- 08/24 20 MG 08/25 -08/27 10 MG Then Stop Metoprolol Tartrate (Metoprolol Tartrate) 25 MG TABLET 12.5 Milligram ORAL TWICE DAILY Qty = 30 No Refills Instructions: - Comments: Last Taken: 08/15/16 Time: 10:15 AM Apixaban (Eliquis) 5 MG TABLET 1 Tablet ORAL TWICE DAILY Qty = 60 No Refills Instructions: - Comments: Last Taken: 08/15/16 Time: 10:15 AM Albuterol Sulfate (Ventolin Hfa) 90 MCG HFA.AER.AD 2 Puff Inhale through mouth EVERY 4-6 HOURS NEEDED as needed for copd Qty = 1 No Refills Instructions: please see your PCP about continuing the medication.. Comments: Last Taken: 08/15/16 Time: 9:00 AM Copies To: VASILIY HASTINGS,ITZEL Jonas Attending MD Review Statement Documenting Attending: ELVIS DREW MD
[2016-08-14 09:55] LABS: PTT 48 SEC (25-37)
--- NOTE | 2016-08-14 11:22 | PN- Cardiology ---
Subjective Subjective: The patient reports that he is feeling worse today. Shortness of breath is significantly worse. No chest pain. No palpitations. No diaphoresis. No nausea or vomiting. No lightheadedness or dizziness. He converted to sinus rhythm. Objective Vital Signs and I&Os Vital Signs Date Time Temp Pulse Resp B/P Pulse O2 O2 Flow FiO2 Ox Delivery Rate 08/14 0907 98.3 68 20 102/70 95 Nasal 2.0L Cannula 08/14 0000 Nasal 3.0L Cannula 08/13 2314 99.1 78 20 112/82 92 Room Air 08/13 2110 82 130/60 08/14 1999 94 Nasal 3.0L Cannula 08/13 1651 98.2 76 18 112/64 94 Room Air 08/13 1353 Room Air 08/13 1305 70 120/80 Intake & Output 08/14 1600 08/14 0800 08/14 0000 08/13 1600 08/13 0800 08/13 0000 Intake Total 344 850 197.5 Output Total 100 800 Balance 344 850 97.5 -800 Intake, IV 224 250 197.5 Intake, Oral 120 600 0 Output, Urine 100 800 Patient 195 lb 195 lb Weight Physical Exam: Gen: The patient is in no acute distress HEENT: Normal nose, ears, and oropharynx. Pupils equal bilaterally. Conjunctiva normal. Neck: Supple with no JVD, no masses, and no thyromegaly Lungs: Bilateral rales with normal respiratory effort Heart: Irregularly irregular, S1, S2, no murmurs. No peripheral edema, 2+ pulses in the lower extremities bilaterally Abdomen: Soft, nontender, no masses. No hepatomegaly. No splenomegaly Extremities: No clubbing or cyanosis. Normal muscle strength in the upper and lower extremities Skin: Normal skin turgor with no skin ulcers or lesions noted. Neuro: Cranial nerves intact. Sensation intact Current Medications: Current Medications Sig/Shy Start time Last Medication Dose Route Stop Time Status Admin Albuterol Sulfate 3 ML Q4P PRN 08/13 0630 AC 08/13 INH 2000 Diltiazem HCl 125 MG Q24H 08/13 2300 AC Dextrose/Water 100 ML IV Diltiazem HCl 125 MG Q16H 08/13 0415 DC 08/13 Dextrose/Water 100 ML IV 08/13 2259 1806 Furosemide 20 MG 7:30 AM, & 4:30 PM 08/13 1630 AC 08/14 IV 0620 Heparin Sodium 2,700 UNIT ONCE ONE 08/14 1100 DC 08/14 (Porcine) IV 08/14 1101 1105 Heparin Sodium 2,700 UNIT ONCE ONE 08/13 1530 DC (Porcine) IV 08/13 1531 Heparin Sodium 5,000 UNIT .STK-MED ONE 08/13 1401 DC (Porcine) IV 08/13 1402 Heparin Sodium 25,000 UNIT Q24H 08/13 0630 AC 08/14 (Porcine) IV 0606 Sodium Chloride 500 ML Methylprednisolone 40 MG Q12 08/14 2200 AC IV Methylprednisolone 40 MG Q8 08/13 1400 DC 08/14 IV 08/14 0700 0620 Metoprolol Tartrate 12.5 MG BID 08/13 1132 AC 08/13 PO 2110 Results Last 48 Hrs of Labs/Mics: Laboratory Tests 08/14/16 0900: Anion Gap 6, Estimated GFR > 60, BUN/Creatinine Ratio 18.8, APTT 48 H 08/13/16 1920: Troponin I 0.26 *H, APTT 83 H 08/13/16 1131: Magnesium 2.0, Troponin I 0.40 *H, APTT 56 H 08/13/16 0400: Anion Gap 9, Estimated GFR > 60, BUN/Creatinine Ratio 8.8, Glucose 124 H, Hemoglobin A1c 5.7, Calcium 9.1, Total Bilirubin 0.6, AST 19, ALT 34, Alkaline Phosphatase 76, Troponin I 0.08, Akg-O-Zlmgdnjqgxu Pept 1470 H, Total Protein 6.8, Albumin 4.0, Globulin 2.8, Albumin/Globulin Ratio 1.4, Triglycerides 110, Cholesterol 193, LDL Cholesterol, Calc 135 H, HDL Cholesterol 36 L, Cholesterol/HDL Ratio 5 H, PT 11.9, INR 1.13, APTT 34 08/13/16 0310: CBC w Diff NO MAN DIFF REQ, RBC 5.26, MCV 91.1, MCH 30.7, RDW 14.3, MPV 9.3, Gran % 85.2 H, Lymphocytes % 8.3 L, Monocytes % 5.5, Eosinophils % 0.8, Basophils % 0.2, Absolute Granulocytes 7.5 H, Absolute Lymphocytes 0.7 L, Absolute Monocytes 0.5, Absolute Eosinophils 0.1, Absolute Basophils 0, PUBS MCHC 33.6 Assessment/Plan Assessment/Plan Assessment: 1. CAD, status post multiple stents 2. Paroxysmal atrial fibrillation 3. Acute heart failure, ejection fraction unknown. Worsening shortness of breath today. Plan: * Discontinue diltiazem * Continue metoprolol * Start Eliquis 5 mg PO twice a day for atrial fibrillation * Discontinue IV heparin when first dose of Eliquis is given * Increase Lasix to 40 mg IV every 12 hours * Monitor input and output with daily weights * Check basic metabolic profile daily * Echocardiogram Continue telemetry? Yes
[2016-08-14 11:38] VITALS: BP 116/70
[2016-08-14 15:48] VITALS: BP 116/70
[2016-08-14 22:20] VITALS: BP 118/64
--- NOTE | 2016-08-15 05:53 | PN- Housestaff ---
See Addendum WIN DIAS 08/15/16 0553: Subjective Follow-up For: Shortness of breath Complaints: no complaints Tele-Events Since Last Visit: Normal sinus rhythm, heart rate in the range of 62-76, 10 beat V. tach nonsustained. Subjective: Patient is comfortable this morning. He was anxious to go home. Vitals were stable overnight. Although he was still requiring intravenous furosemide, and would benefit from another day of stay in the hospital, the patient expressed strong desire to be discharged. Discussed about the plan with Dr. Cha, and he agreed that the patient could be discharged with the closer follow-up with his chiller technician. Arrangements were made for his follow-up with his chiller technician in the a.m. Reviewed all the results with the patient. No chest pain, shortness of breath. Ambulatory saturations were done on this patient, and O2 sat-94% on room air upon ambulation. No plan to discharge the patient on supplemental oxygen at this time. Review of Systems Constitutional: Reports: see HPI. Objective Last 24 Hrs of Vital Signs/I&O Vital Signs Date Time Temp Pulse Resp B/P Pulse O2 O2 Flow FiO2 Ox Delivery Rate 08/15 0000 Nasal 2.0L Cannula 08/14 2220 98.7 74 20 118/64 92 Nasal 2.0L Cannula 08/14 2142 83 124/70 08/14 2047 94 Nasal 2.0L Cannula 08/14 1637 94 Nasal 3.0L Cannula 08/14 1600 95 Nasal 2.0L Cannula 08/14 1548 97.8 73 20 116/70 95 Nasal 3.0L Cannula 08/14 1216 86 116/70 08/14 1138 70 116/70 08/14 0907 98.3 68 20 102/70 95 Nasal 2.0L Cannula 08/14 0800 Nasal 2.0L Cannula Intake & Output 08/15 0800 08/15 0000 08/14 1600 Intake Total 840 886 Output Total Balance 840 886 Intake, IV 246 Intake, Oral 840 640 Physical Exam General Appearance: No Acute Distress Other Physical Findings: General Exam: AAOx3, No acute distress, Skin: No rashes, no breakdown HEENT: PERRLA, EOMI Neck: Supple, No JVD No cervical lymphadenopathy CVS: Reg Rate, Normal S1,S2, systolic murmur Resp: Normal air entry, no ronchi/rales Abdomen: Soft, No tenderness, Normal Bowel Sounds Neuro: Normal Speech, Strength 5/5 b/l x 4 extremities, Sensation intact, CN III -XII NL, Reflexes 2+ Extremities: No cyanosis, pedal edema Current Medications: Current Medications Sig/Shy Start time Last Medication Dose Route Stop Time Status Admin Albuterol Sulfate 3 ML EVERY 4 HRS/AWAKE .. 08/14 1245 AC 08/14 INH 1944 Albuterol Sulfate 3 ML Q4P PRN 08/13 0630 DC 08/14 INH 1134 Apixaban 5 MG BID 08/14 1222 AC 08/14 PO 2142 Diltiazem HCl 125 MG Q24H 08/13 2300 DC Dextrose/Water 100 ML IV Furosemide 40 MG 7:30 AM, & 4:30 PM 08/14 1630 AC 08/14 IV 1819 Furosemide 20 MG ONCE ONE 08/14 1230 DC 08/14 IV 08/14 1231 1315 Furosemide 20 MG 7:30 AM, & 4:30 PM 08/13 1630 DC 08/14 IV 0620 Heparin Sodium 2,700 UNIT ONCE ONE 08/14 1100 DC 08/14 (Porcine) IV 08/14 1101 1105 Heparin Sodium 5,000 UNIT .STK-MED ONE 08/14 1055 DC (Porcine) IV 08/14 1056 Heparin Sodium 25,000 UNIT Q24H 08/13 0630 DC 08/14 (Porcine) IV 0606 Sodium Chloride 500 ML Methylprednisolone 40 MG Q12 08/14 2200 AC 08/14 IV 2142 Methylprednisolone 40 MG Q8 08/13 1400 DC 08/14 IV 08/14 0700 0620 Metoprolol Tartrate 12.5 MG BID 08/13 1132 08/14 PO 2142 Patient Medication 1 ED .STK-MED ONE 08/14 1357 DC Teaching ED 08/14 1358 Last 24 Hrs of Lab/Anthony Results Last 24 Hrs of Labs/Mics: Laboratory Tests 08/14/16 1700: APTT Cancelled 08/14/16 1500: APTT Cancelled 08/14/16 0900: Anion Gap 6, Estimated GFR > 60, BUN/Creatinine Ratio 18.8, APTT 48 H Assessment/Plan Assessment: Mr Marino is a 56-year-old man with a past history of CAD status post 4 stents, paroxysmal atrial fibrillation (not on any anticoagulation DX'ed 15 years ago- unclear reasons), current smoker who is being evaluated for sudden onset of shortness of breath 1 day. Reports noncompliance to medications. Differential diagnosis: #1 unstable angina/NSTEMI #2 paroxysmal atrial fibrillation(?) Below is the problem list and plan: #1 shortness of breath-likely because of paroxysmal atrial fibrillation leading to decreased cardiac output. NSTEMI in the differential. Continue on aspirin and metoprolol. Discontinue Cardizem drip. Current smoker, and no formal diagnosis of COPD was ever made on this patient. Continue Lasix intravenous. Could be changed to by mouth Lasix every 24. IV Solu-Medrol was converted to by mouth prednisone, with the recommendation to complete the taper. TRC. No antibiotics are indicated at this time. Started on Eliquis. Dr. Cha advising. Problem List: 1. Atrial fibrillation with rapid ventricular response Pain Ratin Pain Location: None Pain Goal: Pain 4 or less Pain Plan: Tylenol when necessary Tomorrow's Labs & Rationales: No labs necessary, the patient to be discharged. Consulting Request: Consulting Specialty: Cardiology JOSELYN RIEBRA MD 08/15/16 1819: Attending MD Review Statement Attending Statement Attending MD Statement: examined this patient, discuss w/resident/PA/CLOTH FOLDER HAND, agreed w/resident/PA/CLOTH FOLDER HAND, discussed with family, reviewed EMR data (avail), discussed with nursing, discussed with case mgmt, amended to note Attending Assessment/Plan: The patient was seen and discussed with house staff. Appreciate cardiology input. OK to discharge to home today with plans for OP follow-up with his primary chiller technician (Dr. Patrick) and his PCP who is Dr. Adrian Ashford in [place]. Sent home with Prednisone taper and daily Lasix. ECHO done.
--- NOTE | 2016-08-15 06:02 | NUR ---
APPX 0507, PT HAD 10 BEAT RUN. RN ASSESSED PT WHO WAS SWEATING BUT SAID HE FELT FINE. CONTACTED AND ORDERED EKG. MD CAME AND OBSERVED PT AND EKG. PT'S TEMPERATURE 97.0. BP 130/74, PULSE 69, 02 SAT 91% ON RA. PT APPEARS SOB HE SPEAKS. 2L NC PLACED BACK ON PT. PT STATED TO RN THAT HE WANTED TO BE DISCHARGED TODAY AND WOULD LEAVE HIMSELF EVENTUALLY IF HE WAS NOT. STATED THAT HE DOES NOT WANT TO TAKE MEDICATIONS FOR FEAR THE SIDE EFFECTS WILL DIMINISH HIS QUALITY OF LIFE TOO MUCH. 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 ALSO STATED THAT HE WAS CONCERNED ABOUT HIS LUNGS. MADE AWARE OF ALL. PT CURRENTLY RESTING IN HIS BED. WILL CONTINUE TO MONITOR.
[2016-08-15 08:00] VITALS: BP 112/78
[2016-08-15] MEDS ORDERED: ELIQUIS5 M1 PO ×2 (09:53→13:08)
[2016-08-15] MEDS ORDERED: PREDNISONE10 M2 PO ×2 (10:00→13:08)
[2016-08-15] MEDS ORDERED: FUROSEMIDE40 M1 PO ×2 (10:01→11:44)
[2016-08-15] MEDS ORDERED: METOPROLOL TART25 M1 PO ×2 (10:02→13:08)
[2016-08-15] MEDS ORDERED: VENTOLIN HFA18 GM INH ×2 (10:04→13:08)
[2016-08-15 10:15] VITALS: BP 142/64
--- NOTE | 2016-08-15 11:45 | NUR ---
OOB AMBULATED IN HALLWAY ON ROOM AIR, O2 SATURATION CHECKED 94% DURING AMBULATION. PATIENT REPORTS NO SOB. NOTIFIED JBOSS DEVELOPER AND DR VALE.
--- NOTE | 2016-08-15 12:04 | NUR ---
PATIENT HAD A [address] VALE NOTIFIED. PATIENT ASYMPTOMATIC. PER DR VALE OKAY FOR DISCHARGE, LONG PATIENT FOLLOWS UP WITH CARDIOLOGY OUTPATIENT.
--- NOTE | 2016-08-15 12:30 | PN- Cardiology ---
Subjective Subjective: Clinically, the patient is doing better and is very anxious to be discharged. No new cardiac symptoms. Objective Vital Signs and I&Os Vital Signs Date Time Temp Pulse Resp B/P Pulse O2 O2 Flow FiO2 Ox Delivery Rate 08/15 1127 94 Room Air 08/15 1015 64 142/64 08/15 0912 97 Nasal 3.0L Cannula 08/15 0800 93 Nasal 2.0L Cannula 08/15 0800 97.6 68 20 112/78 92 Nasal 2.0L Cannula 08/15 0000 Nasal 2.0L Cannula 08/14 2220 98.7 74 20 118/64 92 Nasal 2.0L Cannula 08/14 2142 83 124/70 08/14 2047 94 Nasal 2.0L Cannula 08/14 1637 94 Nasal 3.0L Cannula 08/14 1600 95 Nasal 2.0L Cannula 08/14 1548 97.8 73 20 116/70 95 Nasal 3.0L Cannula Intake & Output 08/15 1600 08/15 0800 08/15 0000 08/14 1600 08/14 0800 08/14 0000 Intake Total 240 840 886 344 850 Output Total 500 Balance -260 840 886 344 850 Intake, IV 246 224 250 Intake, Oral 240 840 640 120 600 Number 1 Bowel Movements Output, Urine 500 Current Medications: Current Medications Sig/Shy Start time Last Medication Dose Route Stop Time Status Admin Albuterol Sulfate 3 ML EVERY 4 HRS/AWAKE 08/15 1200 AC INH Albuterol Sulfate 3 ML EVERY 4 HRS/AWAKE .. 08/15 0945 DC INH Albuterol Sulfate 3 ML EVERY 4 HRS/AWAKE .. 08/14 1245 DC 08/15 INH 0911 Apixaban 5 MG BID 08/14 1222 AC 08/15 PO 1015 Furosemide 40 MG 7:30 AM, & 4:30 PM 08/14 1630 AC 08/15 IV 0641 Furosemide 20 MG ONCE ONE 08/14 1230 DC 08/14 IV 08/14 1231 1315 Methylprednisolone 40 MG Q12 08/14 2200 AC 08/15 IV 1015 Metoprolol Tartrate 12.5 MG BID 08/13 1132 AC 08/15 PO 1015 Patient Medication 1 ED .STK-MED ONE 08/14 1357 DC Teaching ED 08/14 1358 Results Last 48 Hrs of Labs/Mics: Laboratory Tests 08/14/16 1700: APTT Cancelled 08/14/16 1500: APTT Cancelled 08/14/16 0900: Anion Gap 6, Estimated GFR > 60, BUN/Creatinine Ratio 18.8, APTT 48 H 08/13/16 1920: Troponin I 0.26 *H, APTT 83 H Assessment/Plan Assessment/Plan Assessment: 1. CAD, status post multiple stents 2. Paroxysmal atrial fibrillation 3. Acute heart failure. 4. Cardiomyopathy with left ventricular ejection fraction approximately 40% 5. Moderate aortic stenosis; estimated valve area 1.0 cm 6. Brief nonsustained wide complex tachycardia; possibly ventricular in origin versus episodes of atrial fibrillation with aberrancy. Recommendations: -Ambulate the patient this morning with monitoring of oxygen saturations off of supplemental oxygen -Continue current medications -Eliquis started -The patient is extremely anxious to be discharged. If the patient ambulates well without supplemental oxygen, the patient can likely be discharged for further evaluation and close outpatient follow-up with his regular traffic survey technician Dr. Patrick. The patient will ultimately need a pharmacologic nuclear stress test as an outpatient and further adjustments of his medications. Continue telemetry? No
--- NOTE | 2016-08-15 13:06 | ECHOCARDIOGRAM REPORT ---
DIMAS CORTEZ Age: 56 : 1960 Gender: M Exam Date: 08/14/2016 17:18 Exam Location: 1 [address] Ht (in): 72 Wt (lb): 195 BSA: 2.13 BP: 116 / 70 Ordering Physician: SAUL EUCEDA MD Referring Physician: Holger Bauman MD Technologist: Nona Peres [facility] Room Number: 188 Indications: MYOCARDIAL ISCHEMIA/ND Rhythm: Sinus Technical Quality: Good FINDINGS Left Ventricle Normal size left ventricle. Mild concentric left ventricular hypertrophy. Moderately decreased left ventricular systolic function. Left ventricular ejection fraction is estimated at 35- 40%. Global hypokinesis. Right Ventricle Normal right ventricular size and function. Right Atrium Normal right atrial size. Left Atrium Normal left atrial size. Mitral Valve Mitral valve thickened. Aortic Valve Diffuse thickening of the aortic valve cusps with reduced excursion. Cikp-df-jjwvakoo aortic stenosis. Mild aortic regurgitation. Tricuspid Valve Tricuspid valve not well visualized, grossly normal. Trace tricuspid regurgitation. Pulmonic Valve Pulmonic valve not well visualized, grossly normal. Trace pulmonic regurgitation. Pericardium No pericardial effusion. Great Vessels Normal size aortic root. CONCLUSIONS Normal size left ventricle. Mild concentric left ventricular hypertrophy. Moderately decreased left ventricular systolic function. Left ventricular ejection fraction is estimated at 35-40%. Global hypokinesis. Ndft-ah-gyactsjh aortic stenosis. Mild aortic regurgitation. Trace tricuspid regurgitation. Trace pulmonic regurgitation. Holger Bauman M.D. (Electronically Signed) Final Date: 15 August 2016 13:05 MEASUREMENTS (Male / Female) Normal Values 2D ECHO LV Diastolic Diameter PLAX 5.5 cm 4.2 - 5.9 / 3.9 - 5.3 cm LV Systolic Diameter PLAX 4.6 cm 2.1 - 4.0 cm LV Fractional Shortening PLAX 16.4 % 25 - 46 % LV Ejection Fraction 2D Teich 34.0 % IVS Diastolic Thickness 1.1 cm LVPW Diastolic Thickness 1.2 cm LV Relative Wall Thickness 0.4 RV Internal Dim ED PLAX 2.9 cm 1.9 - 3.8 cm LVOT Diameter 2.0 cm Aortic Root Diameter 3.1 cm LA Systolic Diameter LX 3.7 cm 3.0 - 4.0 / 2.7 - 3.8 cm LV Ejection Fraction MOD BP 35.7 % >= 55 % LV Diastolic Length 4C 7.7 cm 6.9 - 10.3 cm LV Diastolic Area 4C 31.7 cm LV Diastolic Volume MOD 4C 106.0 cm LV Ejection Fraction MOD 4C 39.6 % LV Stroke Volume MOD 4C 42.0 cm LV Systolic Length 4C 7.3 cm LV Systolic Area 4C 24.0 cm LV Systolic Volume MOD 4C 64.0 cm LV Ejection Fraction MOD 2C 31.4 % LV Diastolic Volume 4C AL 111.2 cm 85 - 139 / 69 - 109 cm LV Systolic Volume 4C AL 66.6 cm LV Ejection Fraction 4C AL 40.1 % LV Stroke Volume 4C AL 44.6 cm LV Ejection Fraction 2C AL 31.6 % LA Volume 44.0 cm 18 - 58 / 22 - 52 cm Ascending Aorta Diameter 3.6 cm DOPPLER AV Peak Velocity 299.0 cm/s AV Peak Gradient 35.8 mmHg AV Mean Velocity 217.0 cm/s AV Mean Gradient 21.0 mmHg AV Velocity Time Integral 67.6 cm LVOT Peak Velocity 101.0 cm/s LVOT Peak Gradient 4.1 mmHg LVOT Mean Velocity 74.1 cm/s LVOT Mean Gradient 2.0 mmHg LVOT Velocity Time Integral 22.7 cm LVOT Stroke Volume 71.3 cm AV Area Cont Eq vti 1.1 cm AV Area Cont Eq pk 1.1 cm MV Peak Velocity 136.0 cm/s MV Peak Gradient 7.4 mmHg MV Mean Velocity 58.4 cm/s MV Mean Gradient 2.0 mmHg Mitral E Point Velocity 112.0 cm/s Mitral A Point Velocity 58.2 cm/s Mitral E to A Ratio 1.9 MV PHT Velocity 104.6 cm/s MV Deceleration [place] 669.0 cm/s MV Pressure Half Time 46.9 ms MV Area PHT 4.7 cm MV Deceleration Time 259.0 ms PV Peak Velocity 103.0 cm/s PV Peak Gradient 4.2 mmHg PV Mean Velocity 69.7 cm/s PV Mean Gradient 2.0 mmHg PV Velocity Time Integral 23.0 cm LV E' Lateral Velocity 6.7 cm/s Mitral E to LV E' Lateral Ratio 16.6 LV E' Septal Velocity 5.1 cm/s Mitral E to LV E' Septal Ratio 22.1
--- NOTE | 2016-08-27 22:15 | Patient Discharge Instructions ---
Discharge Instructions General Discharge Information You were seen/treated for: Congestive Heart Failure Atrial fibrillation Watch for these problems: 1. chest pain, shortness of breath Special Instructions: 1. Please see your PCP within one week of discharge. 2. Please see your sales representative [employer] within one week of discharge. Acute Coronary Syndrome Inclusion Criteria At DC or during hospital stay patient has or had the following: ACS DIAGNOSIS No Discharge Core Measures Meds if any: Prescribed or Continued at Discharge Meds if any: NOT Prescribed or Continued at Discharge Congestive Heart Failure Inclusion Criteria At DC or during hospital stay patient has or had the following: CHF DIAGNOSIS Yes Discharge Core Measures Meds if any: Prescribed or Continued at Discharge LIONEL/ARB for EF <40% No Meds if any: NOT Prescribed or Continued at Discharge Cerebrovascular accident Inclusion Criteria At DC or during hospital stay patient has or had the following: CVA/TIA Diagnosis No Discharge Core Measures Meds if any: Prescribed or Continued at Discharge Meds if any: NOT Prescribed or Continued at Discharge Venous thromboembolism Inclusion Criteria VTE Diagnosis No VTE Type NONE VTE Confirmed by (Test) NONE Discharge Core Measures - Per Current guidelines, there needs to be overlap - treatment for the first 5 days of Warfarin therapy. - If discharged on Warfarin prior to 5 days of - overlap therapy, the patient will need to be - assessed for post discharge needs including - *Post discharge parental anticoagulation - *Warfarin and/or parental anticoagulation education - *Follow up date to check INR post discharge At least 5 days overlap therapy as Inpatient No Meds if any: Prescribed or Continued at Discharge Note: Overlap Therapy is Warfarin and Anticoagulant Meds if any: NOT Prescribed or Continued at Discharge
== END 2016-08-15 13:39 | DRG 310 ==
LOC: ENRESERVTM → ENRESERVDT → ERH 02:21 → ENPENDDIS 05:13 → 1NO 05:13 → ERHI 05:13 → 1NO 08:40
PROVIDERS: Pediatrics; ADMIT Internal Medicine
DX: I48.0 Paroxysmal atrial fibrillation (principal); F41.8 Other specified anxiety disorders; I25.10 Atherosclerotic heart disease of native coronary artery without angina pectoris; Z95.5 Presence of coronary angioplasty implant and graft; F17.200 Nicotine dependence, unspecified, uncomplicated; Z82.49 Family history of ischemic heart disease and other diseases of the circulatory system; I25.2 Old myocardial infarction; I35.0 Nonrheumatic aortic (valve) stenosis
CPT/HCPCS: 1NP; 36415; 82436; 87040; 93005; 93010; 93306; 96374; 96375; 96376; 99291; J0456; J0696; J1644; J1940; J2920; J2930; J7040